=== PATIENT | female | born 1985 | race Caucasian/White ===

== ENCOUNTER 2016-09-21 10:15 | Emergency (ER) | payer OTHER ==
[~2016-09-21] VITALS: Ht 167.6 cm; Wt 56.7 kg
--- NOTE | 2016-09-21 10:18 | NUR ---
PT CALLED IN FOR TRIAGE ASSESSMENT, PT SIGNIFICANT OTHER ANSWERED ALL QUESTIONS, AND WHEN PT ASKED DIRECT QUESTIONS SIGNIFICANT OTHER WOULD INSERT HIMSELF IN THE ANSWERING PROCESS. WHEN SIGNIFICANT OTHER WAS ASKED TO STEP OUTSIDE HE BECAME ANGRY, YELLING "FUCK THESE ASSHOLES, FUCK THIS HOS[facility]!" HE THEN PROCEEDED TO CALL PT AND "SAID LET'S GO." PT THEN STATED, "ILL JUST LEAVE." AND WALKED OUT WITH BOYFRIEND.
--- NOTE | 2016-09-21 10:42 | NUR ---
PT PRESENT TO ED DUE TO CHEST PAIN LAST NIGHT.PT STATES"I HAD A TERRIBLE CP LAST NIGHT AFTER DRINKING A EUGENIO DRY AND MY TOLD ME I PASSED OUT FOR 5 SECONDS".DENIES SOB W/ LITTLE CP.PAIN SCALE OF 2/10.DENIES ANY MEDICAL HX.DENIES N/V;PTAAOX4;AMBULATORY;ALL MONIYTORS PLACED IN;HOB ELEVATED;SAFETY PRECAUTION INSTITUTED. MADE AWARE OF PT'S CONDITION.
[2016-09-21 10:47] VITALS: BP 136/84
--- NOTE | 2016-09-21 10:49 | NUR ---
NO ACUTE DISTRESS NOTED AT THIS TIME.PT AMBULATED TO THE RESTROOM.
--- NOTE | 2016-09-21 10:54 | NUR ---
DR. HENRY AWARE OF THE RESULT OF URINE DIPSTICK
--- NOTE | 2016-09-21 11:24 | NUR ---
PT LYING COMFORTABLY ON BED.NO ACUTE DISTRESS NOTED AT THIS TIME.ALL MONITORS PLACED IN.WILL CONTINUE TO MONITOR PT.
[2016-09-21] MEDS ORDERED: KETOROLAC 60 MG/2 ML VIAL IM ONE (11:35)
--- NOTE | 2016-09-21 11:46 | NUR ---
DR SALTER AT BEDSIDE
[2016-09-21 12:12] VITALS: BP 124/75
== END 2016-09-21 12:13 | disposition home or self-care (01) ==
LOC: MED 10:45
DX: R55 Syncope and collapse (principal); R07.89 Other chest pain; R06.02 Shortness of breath; Z88.0 Allergy status to penicillin
CPT/HCPCS: 81002; 81025; 82948; 93005; 96372; 99283; J1885

== ENCOUNTER 2020-05-04 03:35 | Emergency (ER) | payer OTHER ==
[~2020-05-04] VITALS: Ht 167.6 cm; Wt 76.2 kg
[2020-05-04 03:41] VITALS: BP 136/94
--- NOTE | 2020-05-04 03:41 | NUR ---
34 y/o female presented to the ED c/o SOB, and cough x 1 day. Pt stated that she had felt congested. Pt c/o 5/10 back pain x1 day that is aggravated by coughing. Pt is afebrile and has audible wheezing and bilateral upper lobe wheezing noted on auscultation. The pt stated she took Nyquil and was awoken by her cough. Pt is sitting up in the bed. Bed is in the lowest position. One side rail is up. Pt is not in acute distress at this time.
--- NOTE | 2020-05-04 03:46 | NUR ---
PT TAKEN TO BED 9
--- NOTE | 2020-05-04 03:57 | NUR ---
XRAY AT BEDSIDE.
--- NOTE | 2020-05-04 04:06 | NUR ---
RT AT BEDSIDE FOR ABG COLLECTION.
--- NOTE | 2020-05-04 04:37 | NUR ---
Dr. Rojas examining patient.
[2020-05-04 04:57] VITALS: BP 136/94
[2020-05-04] MEDS: ALBUTEROL SULFATE/IPRATROPIU 3 ML SOL IH ONE (05:08)
== END 2020-05-04 04:57 | disposition home or self-care (01) ==
LOC: MED 03:35
DX: J45.909 Unspecified asthma, uncomplicated (principal); R03.0 Elevated blood-pressure reading, without diagnosis of hypertension
CPT/HCPCS: 71045; 94640; 99284; Q0092

== ENCOUNTER 2021-01-26 20:26 | Emergency (ER) | payer OTHER ==
[~2021-01-26] VITALS: Ht 167.6 cm; Wt 77.1 kg
[2021-01-26 20:38] VITALS: BP 132/95
[2021-01-27] MEDS ORDERED: IBUPROFEN 600 MG TAB PO ONE (00:50)
[2021-01-27 02:58] VITALS: BP 116/77
== END 2021-01-27 03:58 | disposition home or self-care (01) ==
LOC: MED 20:26
DX: R07.9 Chest pain, unspecified (principal); M79.89 Other specified soft tissue disorders
CPT/HCPCS: 71045; 73610; 93005; 93971; 99285